=== PATIENT | female | born 2000 | race Two or more races ===

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

== ENCOUNTER 2023-01-20 13:28 | Outpatient (CLI) | payer BC ==
[2023-01-20 13:43] LABS: BASOPHILS # (AUTO) 0.1 10^3/uL (0.0-0.1); BASOPHILS % (AUTO) 0.6 %; EOSINOPHILS # (AUTO) 0.2 10^3/uL (0.0-0.7); EOSINOPHILS % (AUTO) 1.9 %; HCT - HEMATOCRIT 45.7 % (37.0-47.0); HGB - HEMOGLOBIN 14.5 g/dL (12.0-16.0); LYMPHOCYTES # (AUTO) 1.5 10^3/uL (1.5-3.5); LYMPHOCYTES % (AUTO) 19.6 %; MEAN CORPUSCULAR HEMOGLOBIN 28.6 pg (27.0-31.0); MEAN CORPUSCULAR HGB CONC 31.7 g/dL (32.0-36.0); MEAN CORPUSCULAR VOLUME 90.1 fL (81.0-99.0); MEAN PLATELET VOLUME 9.7 fL (7.9-10.8); MONOCYTES # (AUTO) 0.5 10^3/uL (0.0-1.0); MONOCYTES % (AUTO) 6.7 %; NEUTROPHILS # (AUTO) 5.5 10^3/uL (1.5-6.6); NEUTROPHILS % (AUTO) 70.9 %; PLT - PLATELET COUNT 336 10^3/uL (130-450); RED BLOOD COUNT 5.07 10^6/uL (4.20-5.40); WHITE BLOOD COUNT 7.8 x10^3/uL (4.8-10.8)
[2023-01-20 14:01] LABS: % IRON SATURATION 15 % (20-50); ALKALINE PHOSPHATASE 67 IU/L (42-121); ALT ALANINE AMINOTRANSFERASE 16 IU/L (10-60); AST ASPARTATE AMINOTRANSFERASE 13 IU/L (10-42); BILIRUBIN,TOTAL 0.6 mg/dL (0.2-1.0); BUN - BLOOD UREA NITROGEN 12 mg/dL (6-20); CARBON DIOXIDE - CO2 26 mmol/L (21-32); CHLORIDE 105 mmol/L (101-111); CHOL/HDL RATIO 3.4 (<4.4); CHOLESTEROL 181 mg/dL; CREATININE 0.8 mg/dL (0.4-1.0); GFR - MDRD 89 (>89); GLUCOSE 104 mg/dL (70-100); HDL CHOLESTEROL 53 mg/dL; IRON 65 ug/dL (28-170); LDL CHOLESTEROL,CALCULATED 113 mg/dL; LDL/HDL RATIO 2.1 (<4.4); POTASSIUM 3.7 mmol/L (3.5-5.0); SODIUM 140 mmol/L (135-145); TOTAL IRON BINDING CAPACITY 420 ug/dL (250-450); TRANSFERRIN 300 mg/dL (192-382); TRIGLYCERIDES 76 mg/dL; VLDL CHOLESTEROL 15 mg/dL
--- NOTE | 2023-01-20 14:10 | XRAY Report ---
PROCEDURE: Shoulder 3 View LT INDICATIONS: PAIN TECHNIQUE: 3 views of the shoulder were acquired. COMPARISON: None. FINDINGS: Bones: No fractures or dislocations. No suspicious bony lesions. Visualized ribs appear intact. Acromioclavicular joint space is prominent measuring 9 mm. Soft tissues: No suspicious soft tissue calcifications. IMPRESSION: Mildly prominent acromioclavicular joint space possibly related to sprain. Reviewed by: Elba Barnard MD on 01/20/2023 2:08 PM PDT Approved by: Elba Barnard MD on 01/20/2023 2:08 PM PDT Station ID: [id number]
[2023-01-20 14:13] LABS: THYROID STIMULATING HORMONE 0.73 uIU/mL (0.34-5.60)
[2023-01-20 14:19] LABS: FERRITIN 12.9 ng/mL (11.0-306.8)
== END 2023-01-20 13:29 | disposition home or self-care (01) ==
LOC: DI 13:28
PROVIDERS: ATTEND Nurse Practitioner
DX: M25.512 Pain in left shoulder (principal); R53.83 Other fatigue; Z13.220 Encounter for screening for lipoid disorders; E61.1 Iron deficiency; F41.8 Other specified anxiety disorders; E66.9 Obesity, unspecified
CPT/HCPCS: 36415; 80053; 80061; 82728; 83540; 83721; 84443; 84466; 85025

== ENCOUNTER 2023-06-04 10:50 | Outpatient (CLI) | payer BC | END 2023-06-04 10:51 | disposition home or self-care (01) | LOC: RT 10:50 | PROVIDERS: ATTEND Nurse Practitioner | DX: J45.909 Unspecified asthma, uncomplicated (principal) | CPT/HCPCS: 94010 ==